=== PATIENT | female | born 1960 | race Caucasian/White ===

== ENCOUNTER → 2018-08-13 | Outpatient (CLI) | payer OTHER | LOC: BRMIMAGING 15:13 | PROVIDERS: ATTEND Dermatology | DX: R05 Cough (principal); R06.02 Shortness of breath; R91.1 Solitary pulmonary nodule | CPT/HCPCS: 71046-PO ==

== ENCOUNTER → 2018-09-24 | Outpatient (CLI) | payer OTHER | LOC: BRMIMAGING 15:06 ==